=== PATIENT | female | born 1950 | race Caucasian/White ===

== ENCOUNTER → 2023-07-23 06:33 | Day surgery (SDC) | payer MEDICARE, BC, SELFPAY | LOC: GI 06:33 | PROVIDERS: ATTENDING PHYSICIAN Internal Medicine Gastroenterology | DX: D12.2 Benign neoplasm of ascending colon (principal); K52.9 Noninfective gastroenteritis and colitis, unspecified; K63.89 Other specified diseases of intestine; K63.3 Ulcer of intestine; K57.30 Diverticulosis of large intestine without perforation or abscess without bleeding; R19.4 Change in bowel habit | CPT/HCPCS: 45385; 45380; 88305 ==

== ENCOUNTER 2024-01-16 09:56 | Outpatient (RCR) | payer MEDICARE, BC, SELFPAY | END 2024-01-16 23:59 | disposition home or self-care (01) | LOC: RPT 09:56 | PROVIDERS: ATTENDING PHYSICIAN Internal Medicine Gastroenterology | DX: R15.2 Fecal urgency (principal); R15.9 Full incontinence of feces; N39.41 Urge incontinence; N94.10 Unspecified dyspareunia; Z73.6 Limitation of activities due to disability; M62.81 Muscle weakness (generalized) | CPT/HCPCS: 97140; 97163; 97530 ==

== ENCOUNTER 2024-01-30 12:09 | Outpatient (RCR) | payer MEDICARE, BC, SELFPAY | END 2024-01-30 23:59 | disposition home or self-care (01) | LOC: RPT 12:09 | PROVIDERS: ATTENDING PHYSICIAN Internal Medicine Gastroenterology | DX: R15.2 Fecal urgency (principal); R15.9 Full incontinence of feces; N39.41 Urge incontinence; N94.10 Unspecified dyspareunia; Z73.6 Limitation of activities due to disability; M62.81 Muscle weakness (generalized) | CPT/HCPCS: 97140; 97530 ==

== ENCOUNTER 2024-03-05 15:09 | Outpatient (RCR) | payer MEDICARE, BC, SELFPAY | END 2024-03-05 23:59 | disposition home or self-care (01) | LOC: RPT 15:09 | PROVIDERS: ATTENDING PHYSICIAN Internal Medicine Gastroenterology | DX: R15.2 Fecal urgency (principal); R15.9 Full incontinence of feces; N39.41 Urge incontinence; N94.10 Unspecified dyspareunia; Z73.6 Limitation of activities due to disability; M62.81 Muscle weakness (generalized) | CPT/HCPCS: 97014; 97110; 97112; 97530 ==

== ENCOUNTER 2024-03-28 06:19 | Day surgery (SDC) | payer MEDICARE, BC, SELFPAY ==
[2024-03-28 09:41] VITALS: BMI 29.7
[2024-03-28 09:42] VITALS: BMI 29.7
[2024-03-28 09:43] VITALS: BP 153/72
[2024-03-28 12:15] VITALS: BP 118/70
[2024-03-28 12:30] VITALS: BP 119/63
[2024-03-28 12:45] VITALS: BP 131/60
== END 2024-03-28 13:00 | disposition home or self-care (01) ==
LOC: SDS 06:19
PROVIDERS: ATTENDING PHYSICIAN Internal Medicine Gastroenterology
DX: K29.50 Unspecified chronic gastritis without bleeding (principal); K22.2 Esophageal obstruction; Q39.9 Congenital malformation of esophagus, unspecified; K44.9 Diaphragmatic hernia without obstruction or gangrene; K31.7 Polyp of stomach and duodenum; R13.14 Dysphagia, pharyngoesophageal phase
CPT/HCPCS: 43249; 43239; 88305; 88342; C1726

== ENCOUNTER → 2024-04-14 09:19 | Outpatient (REF) | payer MEDICARE, BC, SELFPAY | LOC: RAD 09:19 | PROVIDERS: ATTENDING PHYSICIAN Internal Medicine Gastroenterology; FAMILY PHYSICIAN Internal Medicine | DX: R12 Heartburn (principal); K44.9 Diaphragmatic hernia without obstruction or gangrene; R13.19 Other dysphagia | CPT/HCPCS: 74246 ==

== ENCOUNTER 2024-04-16 14:05 | Outpatient (RCR) | payer MEDICARE, BC, SELFPAY | END 2024-04-16 23:59 | disposition home or self-care (01) | LOC: RPT 14:05 | PROVIDERS: ATTENDING PHYSICIAN Internal Medicine Gastroenterology | DX: R15.2 Fecal urgency (principal); R15.9 Full incontinence of feces; N39.41 Urge incontinence; N94.10 Unspecified dyspareunia; M62.81 Muscle weakness (generalized); Z73.6 Limitation of activities due to disability | CPT/HCPCS: 97014; 97110; 97112; 97140; 97530 ==

== ENCOUNTER 2024-05-07 14:08 | Outpatient (RCR) | payer MEDICARE, BC, SELFPAY | END 2024-05-07 23:59 | disposition home or self-care (01) | LOC: RPT 14:08 | PROVIDERS: ATTENDING PHYSICIAN Internal Medicine Gastroenterology | DX: R15.2 Fecal urgency (principal); R15.9 Full incontinence of feces; N39.41 Urge incontinence; N94.10 Unspecified dyspareunia; M62.81 Muscle weakness (generalized); Z73.6 Limitation of activities due to disability | CPT/HCPCS: 97014; 97110; 97112; 97530 ==

== ENCOUNTER 2024-06-04 15:00 | Outpatient (RCR) | payer MEDICARE, BC, SELFPAY | END 2024-06-04 23:59 | disposition home or self-care (01) | LOC: RPT 15:00 | PROVIDERS: ATTENDING PHYSICIAN Internal Medicine Gastroenterology | DX: R15.2 Fecal urgency (principal); R15.9 Full incontinence of feces; N39.41 Urge incontinence; N94.10 Unspecified dyspareunia; Z73.6 Limitation of activities due to disability; M62.81 Muscle weakness (generalized) | CPT/HCPCS: 97112; 97530 ==

== ENCOUNTER 2024-07-16 15:11 | Outpatient (RCR) | payer MEDICARE, BC, SELFPAY | END 2024-07-16 23:59 | disposition home or self-care (01) | LOC: RPT 15:11 | PROVIDERS: ATTENDING PHYSICIAN Internal Medicine Gastroenterology | DX: R15.2 Fecal urgency (principal); R15.9 Full incontinence of feces; N39.41 Urge incontinence; N94.10 Unspecified dyspareunia; Z73.6 Limitation of activities due to disability; M62.81 Muscle weakness (generalized) | CPT/HCPCS: 97014; 97110; 97112; 97530 ==

== ENCOUNTER 2024-08-18 08:12 | Outpatient (RCR) | payer MEDICARE, BC, SELFPAY | END 2024-08-18 12:41 | disposition home or self-care (01) | LOC: RPT 08:12 | PROVIDERS: ATTENDING PHYSICIAN Internal Medicine Gastroenterology | DX: R15.2 Fecal urgency (principal); R15.9 Full incontinence of feces; N39.41 Urge incontinence; N94.10 Unspecified dyspareunia; Z73.6 Limitation of activities due to disability; M62.81 Muscle weakness (generalized) | CPT/HCPCS: 97112; 97530 ==

== ENCOUNTER 2024-10-15 06:27 | Day surgery (SDC) | payer MEDICARE, BC, SELFPAY | END 2024-10-15 09:41 | disposition home or self-care (01) | LOC: GI 06:27 | PROVIDERS: ATTENDING PHYSICIAN Internal Medicine Gastroenterology | DX: Z12.11 Encounter for screening for malignant neoplasm of colon (principal); K63.5 Polyp of colon; K64.8 Other hemorrhoids; K57.30 Diverticulosis of large intestine without perforation or abscess without bleeding; Z98.890 Other specified postprocedural states; Z86.0101 Personal history of adenomatous and serrated colon polyps | CPT/HCPCS: 45385; 88305 ==